=== PATIENT | female | born 1995 | race American Indian/Alaskan Native ===

== ENCOUNTER 2020-04-30 01:50 | Emergency (ER) | payer SELFPAY ==
[2020-04-30 02:23] VITALS: BP 115/73
[2020-04-30] MEDS ORDERED: ACETAMINOPHEN 325 MG TAB PO ONE (03:19)
[2020-04-30] MEDS ORDERED: LIDOCAINE (1%) 10 MG/1 ML VIAL 20 ML MDV INFILTRATI ONE (03:19)
[2020-04-30] MEDS ORDERED: IBUPROFEN 800 MG TAB PO ONE (03:19)
--- NOTE | 2020-04-30 03:32 | Emergency Department Report ---
ED General Adult HPI - General Chief complaint: Wound/Laceration Stated complaint: FALL/CHIN INJURY/ETOH Time Seen by Provider: 04/30/20 02:42 Source: patient Mode of arrival: Ambulatory Limitations: No Limitations - History of Present Illness Initial comments: 24-year-old -[place] female patient presents with complaints of chin laceration today. Patient states she fell down the stairs playing with her friends. Patient states she was intoxicated with alcohol at the time and admits to a headache. She denies any loss of consciousness, neck pain, chest breath, nausea/vomiting, dizziness, numbness/tingling/weakness in her limbs, vision changes, or memory loss. Patient rates her headache as 8/10 in severity. She is unsure of her last tetanus vaccination - Related Data Previous Rx's Medication Instructions Recorded Last Taken Type Ibuprofen [Motrin 800 MG tab] 800 mg PO Q8HR PRN #20 tablet 04/30/20 Unknown Rx Mupirocin [Bactroban 2% OINT] 1 applic TP TID 7 Days #1 tube 04/30/20 Unknown Rx Allergies Allergy/AdvReac Type Severity Reaction Status Date / Time No Known Allergies Allergy Unverified 04/30/20 02:33 ED Review of Systems ROS: Stated complaint: FALL/CHIN INJURY/ETOH Other details as noted in HPI Constitutional: denies: malaise Eyes: denies: vision change ENT: denies: throat pain, hearing loss Respiratory: denies: cough Cardiovascular: denies: chest pain Gastrointestinal: denies: abdominal pain, nausea Neurological: headache. denies: weakness, numbness, paresthesias, abnormal gait ED Past Medical Hx - Past Medical History Previous Medical History?: No - Surgical History Past Surgical History?: No - Social History Smoking Status: Current Every Day Smoker Substance Use Type: Marijuana - Medications Home Medications: Home Medications Medication Instructions Recorded Confirmed Last Taken Type Ibuprofen [Motrin 800 MG tab] 800 mg PO Q8HR PRN #20 tablet 04/30/20 Unknown Rx Mupirocin [Bactroban 2% OINT] 1 applic TP TID 7 Days #1 tube 04/30/20 Unknown Rx ED Physical Exam - General Limitations: No Limitations General appearance: alert - Head Head exam: Present: normocephalic. Absent: atraumatic (2 cm laceration noted to chin with mild active bleeding; no obvious foreign body noted) - Eye Eye exam: Present: normal appearance, PERRL, EOMI. Absent: scleral icterus - ENT ENT exam: Present: normal exam - Neck Neck exam: Present: normal inspection, full ROM. Absent: tenderness - Respiratory Respiratory exam: Present: normal lung sounds bilaterally. Absent: respiratory distress, chest wall tenderness - Cardiovascular Cardiovascular Exam: Present: regular rate - GI/Abdominal GI/Abdominal exam: Present: soft. Absent: tenderness - Extremities Exam Extremities exam: Present: full ROM - Back Exam Back exam: Present: full ROM. Absent: paraspinal tenderness, vertebral tenderness - Neurological Exam Neurological exam: Present: alert, oriented X3, CN II-XII intact, normal gait. Absent: motor sensory deficit - Expanded Neurological Exam Expanded Sensory exam: Upper Extremity Light Touch: Normal, Lower Extremity Light Touch: Normal Motor strength exam: RUE: 5, LUE: 5, RLE: 5, LLE: 5 Best Eye Response ([place]): (4) open spontaneously Best Motor Response ([place]): (6) obeys commands Best Verbal Response ([place]): (5) oriented [place] Total: 15 - Psychiatric Psychiatric exam: Present: normal affect, normal mood - Skin Skin exam: Present: warm, dry, intact, normal color. Absent: rash ED Course Vital Signs 04/30/20 04/30/20 04/30/20 02:23 03:25 03:26 Temperature 97.3 F L Pulse Rate 78 Respiratory 18 18 18 Rate Blood Pressure 115/73 [Right] O2 Sat by Pulse 100 Oximetry - Laceration /Wound Repair Face Wound Length (cm): 2 Wound's Depth, Shape: linear Wound Explored: clean Irrigated w/ Saline (ccs): 60 Betadine Prep?: Yes Anesthesia: 1% Lidocaine Volume Anesthetic (ccs): 3 Wound Repaired With: sutures Suture Size/Type: 6:0 Number of Sutures: 9 (Continue) Sterile Dressing Applied?: Yes Progress: Minimal bleeding occurred. Patient tolerated procedure well without any immediate complications. ED Medical Decision Making - Medical Decision Making 24-year-old -[place] female patient presents with complaints of chin laceration today. Patient states she fell down the stairs playing with her friends. Patient states she was intoxicated with alcohol at the time and admits to a headache. She denies any loss of consciousness, neck pain, chest breath, nausea/vomiting, dizziness, vision, or memory loss. Patient rates her headache as 8/10 in severity. She is unsure of her last tetanus vaccination Laceration repaired, patient tolerated procedure well. Offered patient CT of the head given headache after injury while intoxicated, however patient declines. Informed patient of risk of threatening injuries to the head intoxication, patient states she still does not wish to have a CT of the head done. Ibuprofen and Tylenol she now rates it as a 2/10 in severity. Discussed in great detail signs and symptoms that should prompt immediate return to the emergency department in detail with patient who verbalized understanding. Patient to return to the ED in 10 days for suture removal. Recommend follow-up with primary care doctor in 2 days. Critical care attestation.: If time is entered above; I have spent that time in minutes in the direct care of this critically ill patient, excluding procedure time. ED Disposition Clinical Impression: Laceration of chin Qualifiers: Encounter type: initial encounter Qualified Code(s): S01.81XA - Laceration without foreign body of other part of head, initial encounter Headache Qualifiers: Headache type: post-traumatic Headache chronicity pattern: acute headache Intractability: not intractable Qualified Code(s): G44.319 - Acute post- traumatic headache, not intractable Head injury Qualifiers: Encounter type: initial encounter Qualified Code(s): S09.90XA - Unspecified injury of head, initial encounter Disposition: DC-01 TO HOME OR SELFCARE Is pt being admited?: No Condition: Stable Instructions: Head Injury, Adult, Sutured Wound Care, [id number] Additional Instructions: Return to the emergency department in 10 days for suture removal Prescriptions: Mupirocin [Bactroban 2% OINT] 1 applic TP TID 7 Days #1 tube Ibuprofen [Motrin 800 MG tab] 800 mg PO Q8HR PRN #20 tablet PRN Reason: pain Referrals: PRIMARY CARE,MD [Primary Care Provider] - 2-3 Days
== END 2020-04-30 04:30 | disposition home or self-care (01) ==
LOC: ED 01:50
DX: S01.81XA Laceration without foreign body of other part of head, initial encounter (principal); S09.90XA Unspecified injury of head, initial encounter; R51.9 Headache, unspecified; F17.200 Nicotine dependence, unspecified, uncomplicated; F12.90 Cannabis use, unspecified, uncomplicated; Z79.899 Other long term (current) drug therapy; W10.9XXA Fall (on) (from) unspecified stairs and steps, initial encounter; Y93.89 Activity, other specified; Y92.89 Other specified places as the place of occurrence of the external cause; Y99.8 Other external cause status

== ENCOUNTER 2020-05-11 15:58 | Emergency (ER) | payer SELFPAY ==
[2020-05-11 16:42] VITALS: BP 111/67
--- NOTE | 2020-05-11 16:55 | Emergency Department Report ---
Suture/Staple Removal - HPI Chief Complaint: Laceration/Recheck/Suture Stated Complaint: STITCHES REMOVED Time Seen by Provider: 05/11/20 16:48 When Sutures or [place] Placed: 8-10 Days Ago Wound Location: Chin ED Review of Systems ROS: Stated complaint: STITCHES REMOVED Other details as noted in HPI Constitutional: denies: diaphoresis, fever, malaise, weakness Skin: denies: rash, change in color, pruritus ED Past Medical Hx - Social History Smoking Status: Never Smoker - Medications Home Medications: Home Medications Medication Instructions Recorded Confirmed Last Taken Type Ibuprofen [Motrin 800 MG tab] 800 mg PO Q8HR PRN #20 tablet 04/30/20 Unknown Rx Mupirocin [Bactroban 2% OINT] 1 applic TP TID 7 Days #1 tube 04/30/20 Unknown Rx Suture Removal Exam - Exam General: Vital signs noted. No distress. Alert and acting appropriately. Wound: No Pathologic Erythema, No Tenderness, No Drainage, No Pus, No Wound Dehiscence Other Systems: All other systems reviewed and are unremarkable. Healing laceration noted to chin with overlying scab; no surrounding erythema or tenderness to palpation ED Course Vital Signs 05/11/20 16:39 Temperature 98.1 F Pulse Rate 94 H Respiratory 18 Rate Blood Pressure 111/67 O2 Sat by Pulse 99 Oximetry ED Recheck MDM - Medical Decision Making 9 continuous sutures removed. Patient tolerated procedure well. Discussed after wound care. Patient follow-up primary care as needed. She is well- appearing and stable for discharge home. Critical care attestation.: If time is entered above; I have spent that time in minutes in the direct care of this critically ill patient, excluding procedure time. ED Disposition Clinical Impression: Encounter for removal of sutures Disposition: DC-01 TO HOME OR SELFCARE Is pt being admited?: No Condition: Stable Instructions: Wound Closure Removal, Care After Referrals: [facility] [Provider Group] - 3-5 Days
[2020-05-11] MEDS ORDERED: HYDROGEN PEROXIDE 118 ML SOLUTION TP STA (17:11)
== END 2020-05-11 18:00 | disposition home or self-care (01) ==
LOC: ED 15:58
DX: S01.81XA Laceration without foreign body of other part of head, initial encounter (principal); Z48.02 Encounter for removal of sutures; X58.XXXA Exposure to other specified factors, initial encounter; Y93.89 Activity, other specified; Y92.89 Other specified places as the place of occurrence of the external cause; Y99.8 Other external cause status